=== PATIENT | male | born 1970 | race Caucasian/White ===

== ENCOUNTER 2016-12-29 09:04 | Day surgery (SDC) | payer OTHER ==
[~2016-12-29] VITALS: Ht 165.1 cm; Wt 78.4 kg
[2016-12-29 09:57] VITALS: Ht 165.1 cm; Wt 78.4 kg
[2016-12-29] MEDS ORDERED: LISINOPRIL PO (10:00)
[2016-12-29] MEDS ORDERED: LANSOPRAZOLE PO (10:00)
[2016-12-29 10:31] VITALS: BP 132/91; PULSE 63; RESP 16
[2016-12-29] MEDS ORDERED: FENTAnyl 50 MCG/ML VIAL ONE (11:05)
[2016-12-29] MEDS ORDERED: MIDAZOLAM 1 MG/ML 2 ML INJ ONE ×2 (11:06)
[2016-12-29 11:30] VITALS: BP 137/92; PULSE 60; RESP 18
--- NOTE | 2016-12-29 11:33 | GILP ---
DATE OF PROCEDURE: NAME OF PROCEDURES: 1. Esophagogastroduodenoscopy and biopsy. 2. Colonoscopy and biopsy. SURGEON: Nidia Cortez MD PREOPERATIVE DIAGNOSES: 1. Abdominal pain. 2. Chronic heartburn. 3. Rectal bleeding. POSTOPERATIVE DIAGNOSES: 1. Gastroesophageal reflux disease. 2. Gastritis. 3. Gastric mucosal biopsies were taken for Helicobacter pylori test. 4. Colonoscopy all the way to the cecum. 5. Small sigmoid colon polyp was removed using the biopsy forceps. 6. Internal hemorrhoids. INDICATION FOR THE PROCEDURE: Mr. Yovany Albert is a 46-year-old male patient who had upper ab dominal pain and chronic heartburn, not responding to therapy. The patient also had rectal bleeding . The patient was scheduled for endoscopy and colonoscopy for further evaluation. The procedures and possible complications were well explained to the patient. He understood and con sented to the procedures. DESCRIPTION OF PROCEDURE: Under the influence of fentanyl and Versed, the gastroscope was carefully introduced into the esophagus and under direct vision, it was advanced to the stomach and through t he pylorus into the duodenal bulb and descending duodenum. FINDINGS: ESOPHAGUS: The patient had gastroesophageal reflux disease. He also had gastritis. Gastric mucosa l biopsies were taken for H. pylori test. DUODENUM: Normal. The colonoscope was carefully introduced in the rectum and under direct vision, it was advanced all the way to the cecum. FINDINGS: The patient had a small sigmoid colon polyp and it was removed using the biopsy forceps. He had internal hemorrhoids. He tolerated the procedures very well and there was no complication from the procedures. At the end of the procedures, he was awake with stable vital signs and he was discharged home to the care of h is family. IMPRESSION: Please see postoperative diagnoses. PLAN: 1. Continue pantoprazole. 2. Add Zantac 300 mg p.o. at bedtime. 3. Anusol-HC 2.5% cream at bedtime p.r.n. for rectal bleeding. 4. Await histopathology reports. Dictated By: NIDIA GRIFFIN/DAMIÁN Conf#: [id number] DID#: [id number]
== END 2016-12-29 11:54 | disposition home or self-care (01) ==
LOC: GIL 09:04
PROVIDERS: ATTEND Internal Medicine Gastroenterology
DX: D12.7 Benign neoplasm of rectosigmoid junction (principal); K21.9 Gastro-esophageal reflux disease without esophagitis; K29.70 Gastritis, unspecified, without bleeding; K64.8 Other hemorrhoids; I10 Essential (primary) hypertension
CPT/HCPCS: 43239; 45380; 87081; 88305; J2250; J3010; Z7610